=== PATIENT | female | born 1985 | race Caucasian/White ===

== ENCOUNTER 2017-01-12 15:04 | Emergency (ER) | payer MEDICAID ==
[2015-11-28 07:12] VITALS: BMI 24.3
[~2017-01-12 15:04] MED LIST: AUGMENTIN 875-11 TAB PO; ROBAXIN500 MG PO; ULTRAM50 MG PO; VISTARIL50 MG PO
== END 2017-01-12 17:45 | disposition home or self-care (01) ==
LOC: D.ER 15:04
DX: M26.602 Left temporomandibular joint disorder, unspecified (principal); K74.60 Unspecified cirrhosis of liver; B19.20 Unspecified viral hepatitis C without hepatic coma; F17.200 Nicotine dependence, unspecified, uncomplicated